=== PATIENT | male | born 1965 | race Caucasian/White ===

== ENCOUNTER 2017-02-08 21:53 | Inpatient (IN) | payer OTHER ==
[~2017-02-08] VITALS: Ht 180.3 cm; Wt 129.8 kg
[~2017-02-08 21:53] MED LIST: ALKA-SELTZER G1 EAC1 PO; AMBIEN10 MG PO; ASCORBIC ACID500 M3 PO; ASPIRIN EC325 MG PO; BACTROBAN NASAL1 G1 BOTH NARES; BENADRYL25 MG PO; CELECOXIB200 MG PO; CENTRUM SILVER1 EAC3 PO; CIALIS5 MG PO; COLCRYS0.6 MG PO; CYANOCOBALAM1000 MCG PO; FERROUS SULFAT325 MG PO; FLOMAX0.4 MG PO; GLUMETZA500 M1 PO; HYDROMORPHONE HC2 MG PO; IMODIUM MS REL1 EACH PO; LIDODERM 5% P1 PATCH TD; LISINOPRIL20 MG PO; MELATONIN1 MG PO; NORVASC2.5 MG PO; PHENTERMINE HCL15 MG PO; PHENTERMINE HCL30 MG PO; PREDNISONE20 MG PO; PRILOSEC20 MG PO; PROBENECID500 MG PO; SENNA PLUS TAB1 EACH PO; ULORIC80 MG PO; VICTOZA0.6 MG/0.1 SC; VITAMIN C1000 MG PO; VITAMIN D22000 UNIT PO; ZOLPIDEM TARTRA10 MG PO
[2017-02-08 22:43] LABS: HEMATOCRIT 37.4 % (38.0-50.0); MCH 29.5 PG (29.0-34.0); MCHC 33.2 G/DL (30.0-36.0); MCV 88.8 FL (86-99); PLATELET COUNT 215 K/uL (156-360); RBC DIS.WIDTH-CV 12.9 % (11.8-14.6); RBC DIS.WIDTH-SD 42.1 % (39-53); RED BLOOD COUNT 4.21 M/uL (4.00-5.50); WHITE BLOOD COUNT 7.1 K/uL (4.1-10.2)
[2017-02-08 22:51] LABS: CHLORIDE 105 mEq/L (99-109); POTASSIUM 4.6 mEq/L (3.7-5.4); SODIUM 139 mEq/L (136-147)
[2017-02-08 22:53] LABS: GLUCOSE 95 mg/dL (70-99)
[2017-02-08 22:54] LABS: ANION GAP 10 MEQ/L (2-14)
[2017-02-08 22:57] LABS: GFR ESTIMATE (CALCULATED) 20 mL/min/; UREA NITROGEN (BUN) 34 mg/dL (9-23)
[2017-02-08 23:04] LABS: TROP-I INTERPRETATION NEGATIVE; TROPONIN-I < 0.01 ng/mL (0.0-0.30)
[2017-02-08 23:16] LABS: D-DIMER ELISA 2.55 mg/L FEU (< 0.57)
[2017-02-09] MEDS ORDERED: MELATONIN3 MG PO (00:29)
[2017-02-09] MEDS ORDERED: LISINOPRIL10 MG PO (00:29)
[2017-02-09] MEDS ORDERED: LUNESTA2 MG PO (00:29)
[2017-02-09 03:17] VITALS: BP 160/96
[2017-02-09 05:56] LABS: TROP-I INTERPRETATION NEGATIVE; TROPONIN-I < 0.01 ng/mL (0.0-0.30)
[2017-02-09 06:40] LABS: METH RESISTANT S AUREUS PCR NEGATIVE (NEGATIVE)
[2017-02-09 06:41] LABS: PROBE CHECK PASS; SPECIMEN PROCESSING CONTROL PASS
[2017-02-09 07:30] VITALS: BP 132/67
[2017-02-09 10:51] LABS: TROP-I INTERPRETATION NEGATIVE; TROPONIN-I < 0.01 ng/mL (0.0-0.30)
[2017-02-09 13:12] LABS: ADD MIUA? YES; BILIRUBIN NEGATIVE; BLOOD NEGATIVE; COLOR STRAW ((YELLOW)); GLUCOSE (STRIP) NEGATIVE; KETONES NEGATIVE; LEUKOCYTES NEGATIVE; NITRITE NEGATIVE; PROTEIN (STRIP) 100; SPECIFIC GRAVITY 1.006 (1.000-1.030); UROBILINOGEN 0.2 MG/DL (0.2-1.0)
[2017-02-09 13:29] LABS: BACTERIA NONE SEEN /HPF; EPITHELIAL CELLS NONE SEEN /HPF; MUCUS NONE SEEN /LPF; RED BLOOD CELLS 0-5 /HPF (0-5); WHITE BLOOD CELLS 0-5 /HPF (0-5)
[2017-02-09 20:00] VITALS: BP 134/89
[2017-02-09 21:12] LABS: POINT-OF-CARE METER ID UU14162513
[2017-02-10] VITALS: BP 165/98
[2017-02-10 04:16] VITALS: BP 169/94
[2017-02-10 05:57] LABS: HEMATOCRIT 36.7 % (38.0-50.0); MCH 30.5 PG (29.0-34.0); MCHC 34.6 G/DL (30.0-36.0); MCV 88.2 FL (86-99); MEAN PLAT.VOLUME 10.5 uM^3 (9.0-12.4); PLATELET COUNT 235 K/uL (156-360); RBC DIS.WIDTH-CV 12.7 % (11.8-14.6); RBC DIS.WIDTH-SD 40.9 % (39-53); RED BLOOD COUNT 4.16 M/uL (4.00-5.50); WHITE BLOOD COUNT 8.4 K/uL (4.1-10.2)
[2017-02-10 06:25] LABS: ANION GAP 8 MEQ/L (2-14); CHLORIDE 104 MEQ/L (99-109); GFR ESTIMATE (CALCULATED) 23 mL/min/; POTASSIUM 4.9 MEQ/L (3.7-5.4); SAMPLE HEMOLYSIS CHECK 0; SAMPLE ICTERIC CHECK 0; SAMPLE LIPEMIA CHECK 0; SODIUM 134 MEQ/L (136-147); UREA NITROGEN (BUN) 38 mg/dL (9-23)
[2017-02-10 06:27] LABS: GLUCOSE 174 mg/dL (70-99)
[2017-02-10 07:56] VITALS: BP 160/94
[2017-02-10 08:14] LABS: POINT-OF-CARE METER ID UU14162513
[2017-02-10] MEDS ORDERED: AZITHROMYCIN500 M1 PO (10:56)
[2017-02-10] MEDS ORDERED: AMLODIPINE BESYL5 MG PO (10:56)
[2017-02-10 11:19] VITALS: BP 146/76
[2017-02-10 12:17] LABS: POINT-OF-CARE METER ID UU14162513
== END 2017-02-10 16:39 | disposition home or self-care (01) | DRG 204 ==
LOC: EME 21:53 → EDOF 02-09 02:28 → 5WEST 02-09 02:28
PROVIDERS: Hospitalist; Nurse Practitioner Adult Health; Pediatrics
DX: R06.02 Shortness of breath (principal); E11.21 Type 2 diabetes mellitus with diabetic nephropathy; E11.22 Type 2 diabetes mellitus with diabetic chronic kidney disease; F41.9 Anxiety disorder, unspecified; J40 Bronchitis, not specified as acute or chronic; I12.9 Hypertensive chronic kidney disease with stage 1 through stage 4 chronic kidney disease, or unspecified chronic kidney disease; N18.3 Chronic kidney disease, stage 3 (moderate); N18.4 Chronic kidney disease, stage 4 (severe); R80.9 Proteinuria, unspecified; E66.9 Obesity, unspecified; E78.5 Hyperlipidemia, unspecified; N40.0 Benign prostatic hyperplasia without lower urinary tract symptoms; Z96.653 Presence of artificial knee joint, bilateral; R07.9 Chest pain, unspecified; M19.90 Unspecified osteoarthritis, unspecified site; K21.9 Gastro-esophageal reflux disease without esophagitis; G47.33 Obstructive sleep apnea (adult) (pediatric); R60.0 Localized edema; Z87.891 Personal history of nicotine dependence; Z68.39 Body mass index [BMI] 39.0-39.9, adult
CPT/HCPCS: 71020; 76770; 78582; 80048; 80069; 81003; 82948; 83880; 84484; 85027; 85379; 87641; 93005; 93306; 93971; 99281; 99285; A9540; A9567; J1650; J1815; J2060; J2930; J7030

== ENCOUNTER → 2017-08-31 | Outpatient (CLI) | payer MEDICARE ==
[~2017-08-31] MED LIST changes: +AMLODIPINE BESYL5 MG PO; +AZITHROMYCIN500 M1 PO; +KLONOPIN0.5 M1 PO; +LUNESTA3 MG PO; +MELATONIN5 M3 PO; +TYLENOL REGULA325 MG PO; +ZANTAC150 MG PO; +ZESTRIL5 MG PO
== END | disposition home or self-care (01) ==
LOC: CDC 11:13
DX: Z01.810 Encounter for preprocedural cardiovascular examination (principal); R00.1 Bradycardia, unspecified
CPT/HCPCS: 93000

== ENCOUNTER 2017-09-13 07:01 | Day surgery (SDC) | payer OTHER ==
[~2017-09-13] VITALS: Ht 180.3 cm; Wt 74.8 kg
[2017-09-13 07:36] VITALS: BP 163/79
[2017-09-13 07:57] LABS: HEMATOCRIT 33.5 % (38.0-50.0); MCH 30.1 PG (29.0-34.0); MCHC 32.8 G/DL (30.0-36.0); MCV 91.8 FL (86-99); PLATELET COUNT 160 K/uL (156-360); RBC DIS.WIDTH-CV 13.2 % (11.8-14.6); RBC DIS.WIDTH-SD 44.2 % (39-53); RED BLOOD COUNT 3.65 M/uL (4.00-5.50); WHITE BLOOD COUNT 4.3 K/uL (4.1-10.2)
[2017-09-13 08:23] LABS: CHLORIDE 112 MEQ/L (99-109); CREATININE 4.2 MG/DL (0.6-1.3); GFR ESTIMATE (CALCULATED) 16 mL/min/ (58.99-99999); GLUCOSE 100 mg/dL (70-99); POTASSIUM 4.8 MEQ/L (3.7-5.4); SODIUM 142 MEQ/L (136-147); UREA NITROGEN (BUN) 60 mg/dL (9-23)
[2017-09-13 13:52] VITALS: BP 124/68
[2017-09-13 15:00] VITALS: BP 127/68
== END 2017-09-13 15:13 | disposition home or self-care (01) ==
LOC: SDC 07:01
PROVIDERS: Surgery
DX: I12.0 Hypertensive chronic kidney disease with stage 5 chronic kidney disease or end stage renal disease (principal); E11.22 Type 2 diabetes mellitus with diabetic chronic kidney disease; N18.6 End stage renal disease; Z87.891 Personal history of nicotine dependence
CPT/HCPCS: 80048; 82948; 85027; 87641; J0690; J1644; J2250; J2720; J3010

== ENCOUNTER 2018-03-01 20:45 | Emergency (ER) | payer OTHER ==
[~2018-03-01] VITALS: Ht 180.3 cm; Wt 119.9 kg
[2018-03-01 21:15] LABS: HEMATOCRIT 33.6 % (38.0-50.0); HEMOGLOBIN 11.3 G/DL (12.5-16.6); MCH 29.5 PG (29.0-34.0); MCHC 33.6 G/DL (30.0-36.0); MCV 87.7 FL (86-99); PLATELET COUNT 172 K/uL (156-360); RBC DIS.WIDTH-SD 41.3 % (39-53); RED BLOOD COUNT 3.83 M/uL (4.00-5.50)
[2018-03-01 21:25] LABS: CHLORIDE 108 mEq/L (99-109); POTASSIUM 4.9 mEq/L (3.7-5.4); SODIUM 138 mEq/L (136-147)
[2018-03-01 21:27] LABS: GLUCOSE 110 mg/dL (70-99)
[2018-03-01 21:31] LABS: CREATININE 4.1 mg/dL (0.6-1.3); GFR ESTIMATE (CALCULATED) 16 mL/min/ (58.99-99999)
[2018-03-01 21:32] LABS: UREA NITROGEN (BUN) 45 mg/dL (9-23)
[2018-03-01 21:39] LABS: TROP-I INTERPRETATION NEGATIVE; TROPONIN-I 0.01 ng/mL (0.0-0.30)
[2018-03-02 01:08] LABS: TROP-I INTERPRETATION NEGATIVE; TROPONIN-I < 0.01 ng/mL (0.0-0.30)
[2018-03-02 01:20] VITALS: BP 126/79
== END 2018-03-02 01:30 | disposition home or self-care (01) ==
LOC: EME 20:45
PROVIDERS: Emergency Medicine
DX: R07.9 Chest pain, unspecified (principal); E11.9 Type 2 diabetes mellitus without complications; E78.5 Hyperlipidemia, unspecified; F32.9 Major depressive disorder, single episode, unspecified; Z87.891 Personal history of nicotine dependence; Z96.653 Presence of artificial knee joint, bilateral
CPT/HCPCS: 71046; 80048; 84484; 85027; 93005; 99281; 99284